=== PATIENT | male | born 1965 | race African-American/Black ===

== ENCOUNTER 2018-10-03 12:45 | Inpatient (IN) ==
[2018-10-03] MEDS ORDERED: ONDANSETRON 4 MG/2 ML VIAL IV STA (13:15)
[2018-10-03] MEDS ORDERED: levETIRAcetam 500 MG/5 ML VIAL IV ONE (13:34)
[2018-10-03 13:42] LABS: Apearance,Urine CLEAR (Clear); Bilirubin,Urine Negative (Negative); Blood, Urine Moderate mg/dL (Negative); Glucose,Urine (UA) >=500 mg/dL (Negative); Ketones,Urine Negative (Negative); Nitrite,Urine Negative (Negative); Protein,Urine 30 MG/DL; RBC,Urine 1 /HPF (0-4); Squamous Epithelial Cell,Urine Occasional /HPF (0-10); Urine Color Colorless (Yellow); Urine Specific Gravity 1.007 (1.001-1.035); Urine Urobilinogen < 2.0 EU/DL (0.2-1.0); WBC,Urine <1 /HPF (0-6)
[2018-10-03 13:51] LABS: Barbiturates Screen,Urine Negative (Negative); Benzodiazepines Screen,Urine Negative (Negative); Cannabinoid Screen,Urine Negative (Negative); Opiate Screen,Urine Negative (Negative); Phencyclidine Screen,Urine Negative (Negative)
[2018-10-03 13:54] LABS: Basophils % 0.3 % (0.0-0.8); Eosinophils % 0.1 % (0.00-10.9); Hematocrit 49.7 VOL% (42.0-52.0); Immature Granulocytes % 0.8 %; Immature Granulocytes Absolute 0.06 #; Lymphocytes # 1.1 10*3/uL (1.4-4.0); Lymphocytes % 14.2 % (21.2-54.2); Mean Corpuscular HGB Conc 32.2 GM/DL (32-36); Mean Corpuscular Hemoglobin 31 PG (27-34); Mean Corpuscular Volume 96.7 FL (87-102); Mean Platelet Volume 10.6 FL (9.6-12.0); Monocytes # 0.6 10*3/uL (0.11-0.8); Monocytes % 7.1 % (1.7-12.7); Neutrophils # 6.1 10*3/uL (1.4-7.4); Neutrophils % 77.5 % (38.7-73.9); Platelet Count 152 T/CUMM (130-400); Red Blood Count 5.14 MC/CUMM (3.8-5.5); Red Cell Distribution Width 14.5 % (9.3-17.3); White Blood Count 7.8 T/CUMM (4-12)
[2018-10-03 14:15] LABS: Alanine Aminotransferase 18 U/L (16-61); Albumin 3.8 G/DL (3.4-5.0); Alkaline Phosphatase 115 U/L (45-117); Aspartate Amino Transferase 31 U/L (0-37); Blood Urea Nitrogen 6 MG/DL (7-18); Calcium 8.6 MG/DL (8.5-10.1); Glucose 197 MG/DL (74-106); Osmolality,Calculated 275.8 MOS/KG (273-304); Potassium 3.1 MMOL/L (3.5-5.1); Sodium 137 MMOL/L (136-145); Total Protein 7.7 G/DL (6.4-8.3); Troponin I < 0.015 NG/ML (0.00-0.045)
[2018-10-03] MEDS ORDERED: POTASSIUM CHLORIDE 20 MEQ TABLET PO STA (14:38)
[2018-10-03] MEDS: ACETAMINOPHEN 325 MG TABLET PO PRN ×2 (15:10→20:23)
[2018-10-03] MEDS ORDERED: METOPROLOL TARTRATE 5 MG/5 ML VIAL IV STA (15:58)
[2018-10-03] MEDS ORDERED: LORazepam 2 MG/1 ML VIAL IV PRN (16:39)
[2018-10-03] MEDS ORDERED: hydrALAZINE 20 MG/1 ML VIAL IV PRN (17:04)
[2018-10-03] MEDS ORDERED: cloNIDine 0.2 MG/24 HR PATCH TRANSDERM SCH (17:30)
[2018-10-03] MEDS: POTASSIUM CHLORIDE 20 MEQ TABLET PO PRN ×2 (18:20→20:23)
[2018-10-03] MEDS ORDERED: LABETALOL 20 MG/4 ML SYRINGE IV PRN (19:55)
[2018-10-04 01:57] LABS: Basophils % 0.3 % (0.0-0.8); Eosinophils % 0.1 % (0.00-10.9); Hematocrit 48.2 VOL% (42.0-52.0); Immature Granulocytes % 0.3 %; Immature Granulocytes Absolute 0.02 #; Lymphocytes # 1.3 10*3/uL (1.4-4.0); Mean Corpuscular HGB Conc 33.2 GM/DL (32-36); Mean Corpuscular Hemoglobin 31 PG (27-34); Mean Corpuscular Volume 93.1 FL (87-102); Mean Platelet Volume 10.5 FL (9.6-12.0); Monocytes # 0.6 10*3/uL (0.11-0.8); Monocytes % 8.7 % (1.7-12.7); Neutrophils # 5.1 10*3/uL (1.4-7.4); Neutrophils % 72.6 % (38.7-73.9); Platelet Count 156 T/CUMM (130-400); Red Blood Count 5.18 MC/CUMM (3.8-5.5); Red Cell Distribution Width 14.7 % (9.3-17.3)
[2018-10-04 02:27] LABS: Calcium 8.8 MG/DL (8.5-10.1); Osmolality,Calculated 274.5 MOS/KG (273-304); Risk Ratio 1.87; Thyroid Stimulating Hormone 0.129 uIU/ml (0.358-3.74)
[2018-10-04] MEDS: LISINOPRIL 20 MG TABLET PO SCH (08:30)
[2018-10-04] MEDS: PANTOPRAZOLE 40 MG TABLET PO SCH (08:30)
[2018-10-04] MEDS: METOPROLOL SUCCINATE XL 100 MG TABLET PO SCH (08:37)
[2018-10-04] MEDS: levETIRAcetam 500 MG TABLET PO SCH (20:23)
[2018-10-05 05:36] LABS: Basophils % 0.6 % (0.0-0.8); Eosinophils # 0.1 10*3/uL (0.0-0.87); Eosinophils % 2.1 % (0.00-10.9); Hematocrit 46.7 VOL% (42.0-52.0); Hemoglobin 15.1 GM/DL (14.0-18.0); Immature Granulocytes % 0.2 %; Immature Granulocytes Absolute 0.01 #; Lymphocytes # 1.9 10*3/uL (1.4-4.0); Lymphocytes % 39.7 % (21.2-54.2); Mean Corpuscular HGB Conc 32.3 GM/DL (32-36); Mean Corpuscular Hemoglobin 31 PG (27-34); Mean Corpuscular Volume 96.3 FL (87-102); Mean Platelet Volume 10.9 FL (9.6-12.0); Monocytes # 0.5 10*3/uL (0.11-0.8); Monocytes % 10.7 % (1.7-12.7); Neutrophils # 2.3 10*3/uL (1.4-7.4); Neutrophils % 46.7 % (38.7-73.9); Platelet Count 154 T/CUMM (130-400); Red Blood Count 4.85 MC/CUMM (3.8-5.5); Red Cell Distribution Width 14.8 % (9.3-17.3); White Blood Count 4.9 T/CUMM (4-12)
[2018-10-05 06:06] LABS: Calcium 8.9 MG/DL (8.5-10.1); Osmolality,Calculated 274.5 MOS/KG (273-304)
[2018-10-05] MEDS: levETIRAcetam 500 MG TABLET PO SCH (08:37)
[2018-10-05] MEDS: PANTOPRAZOLE 40 MG TABLET PO SCH (08:38)
[2018-10-05] MEDS: LISINOPRIL 20 MG TABLET PO SCH (08:38)
[2018-10-05] MEDS: METOPROLOL SUCCINATE XL 100 MG TABLET PO SCH (08:38)
[2018-10-05 12:33] VITALS: BP 128/83
== END 2018-10-05 13:18 | disposition home or self-care (01) | DRG 101 ==
LOC: EDUNIT# → EDBD → N.ED 12:45 → N.EDINP 15:00 → N.5E 16:37
PROVIDERS: ADMIT Hospitalist; ATTEND Hospitalist

== ENCOUNTER 2018-12-06 12:30 | Observation (INO) ==
[2018-12-06] MEDS ORDERED: levETIRAcetam 500 MG/5 ML VIAL IV ONE (13:24)
[2018-12-06 13:32] LABS: Basophils % 0.4 % (0.0-0.8); Eosinophils # 0.1 10*3/uL (0.0-0.87); Eosinophils % 1.5 % (0.00-10.9); Hematocrit 40.3 VOL% (42.0-52.0); Hemoglobin 13.3 GM/DL (14.0-18.0); Immature Granulocytes % 0.2 %; Immature Granulocytes Absolute 0.01 #; Lymphocytes # 1.1 10*3/uL (1.4-4.0); Lymphocytes % 23.2 % (21.2-54.2); Mean Corpuscular Volume 94.6 FL (87-102); Mean Platelet Volume 10.8 FL (9.6-12.0); Monocytes % 13.1 % (1.7-12.7); Neutrophils % 61.6 % (38.7-73.9); Platelet Count 148 T/CUMM (130-400); Red Blood Count 4.26 MC/CUMM (3.8-5.5); Red Cell Distribution Width 15.3 % (9.3-17.3); White Blood Count 4.6 T/CUMM (4-12)
[2018-12-06] MEDS ORDERED: ACETAMINOPHEN 500 MG TABLET PO STA (13:37)
[2018-12-06] MEDS ORDERED: ACETAMINOPHEN 500 MG TABLET ONE (13:38)
[2018-12-06 13:59] LABS: Calcium 8.6 MG/DL (8.5-10.1)
[2018-12-06] MEDS ORDERED: amLODIPine 10 MG TABLET ONE (14:01)
[2018-12-06] MEDS ORDERED: amLODIPine 5 MG TABLET PO STA (14:05)
[2018-12-06] MEDS ORDERED: LORazepam 2 MG/1 ML VIAL ONE (14:53)
[2018-12-06] MEDS ORDERED: LORazepam 2 MG/1 ML VIAL IV STA (15:11)
[2018-12-06 15:25] LABS: Apearance,Urine CLEAR (Clear); Bilirubin,Urine Negative (Negative); Blood, Urine Small mg/dL (Negative); Glucose,Urine (UA) Negative (Negative); Ketones,Urine Negative (Negative); Mucus,Urine Moderate /LPF (Occasional); Nitrite,Urine Negative (Negative); Protein,Urine 100 MG/DL; RBC,Urine 5 /HPF (0-4); Squamous Epithelial Cell,Urine Occasional /HPF (0-10); Urine Color Yellow (Yellow); Urine Specific Gravity 1.017 (1.001-1.035); Urine Urobilinogen < 2.0 EU/DL (0.2-1.0); WBC,Urine 1 /HPF (0-6)
[2018-12-06 15:36] LABS: Barbiturates Screen,Urine Negative (Negative); Benzodiazepines Screen,Urine Negative (Negative); Cannabinoid Screen,Urine Negative (Negative); Opiate Screen,Urine Negative (Negative); Phencyclidine Screen,Urine Negative (Negative)
[2018-12-06] MEDS ORDERED: THIAMINE INJ 100 MG, FOLIC ACID INJ 1 MG, MAGNESIUM SULF INJ 2 GM, MULTIVITAMIN INJ 10 ... IV ONE (15:39)
[2018-12-06] MEDS ORDERED: ONDANSETRON 4 MG/2 ML VIAL IV PRN ×2 (16:07→16:10)
[2018-12-06] MEDS ORDERED: LORazepam 2 MG/1 ML VIAL IV PRN (16:09)
[2018-12-06] MEDS ORDERED: DOCUSATE SODIUM 100 MG CAPSULE PO PRN (16:10)
[2018-12-06] MEDS ORDERED: ACETAMINOPHEN 325 MG TABLET PO PRN (16:10)
[2018-12-06] MEDS ORDERED: hydrALAZINE 20 MG/1 ML VIAL IV PRN (16:12)
[2018-12-06] MEDS ORDERED: ENOXAPARIN 40 MG/0.4 ML SYRINGE SUBCUT SCH (16:30)
[2018-12-06] MEDS ORDERED: METOPROLOL TARTRATE 50 MG TABLET ONE (17:18)
[2018-12-06] MEDS ORDERED: LISINOPRIL 10 MG TABLET ONE (17:20)
[2018-12-06] MEDS: LISINOPRIL 10 MG TABLET PO SCH (17:46)
[2018-12-06 17:56] LABS: PT Patient Result 10.6 SECS; Partial Thromboplastin Time 24.7 SECS (0-40)
[2018-12-06] MEDS ORDERED: NICOTINE 21 MG/24 HR PATCH TRANSDERM PRN (18:30)
[2018-12-06 18:34] LABS: Risk Ratio 1.95; Thyroid Stimulating Hormone 0.11 uIU/ml (0.358-3.74); VLDL CHOLESTEROL 10.8 MG/DL
[2018-12-06] MEDS: METOPROLOL SUCCINATE XL 100 MG TABLET PO SCH ×2 (18:58→21:07)
[2018-12-06] MEDS: levETIRAcetam 500 MG TABLET PO SCH (21:03)
[2018-12-07 04:38] LABS: Basophils % 0.2 % (0.0-0.8); Eosinophils % 0.4 % (0.00-10.9); Hematocrit 40.8 VOL% (42.0-52.0); Hemoglobin 13.6 GM/DL (14.0-18.0); Immature Granulocytes % 0.4 %; Immature Granulocytes Absolute 0.02 #; Lymphocytes # 1.3 10*3/uL (1.4-4.0); Lymphocytes % 22.4 % (21.2-54.2); Mean Corpuscular HGB Conc 33.3 GM/DL (32-36); Mean Corpuscular Volume 93.6 FL (87-102); Mean Platelet Volume 11.1 FL (9.6-12.0); Monocytes % 13.1 % (1.7-12.7); Neutrophils % 63.5 % (38.7-73.9); Platelet Count 154 T/CUMM (130-400); Red Blood Count 4.36 MC/CUMM (3.8-5.5); Red Cell Distribution Width 14.9 % (9.3-17.3); White Blood Count 5.7 T/CUMM (4-12)
[2018-12-07 05:26] LABS: Bilirubin,Total 1.1 MG/DL (0.2-1.0); Calcium 8.8 MG/DL (8.5-10.1); Osmolality,Calculated 275.4 MOS/KG (273-304); Total Protein 5.9 G/DL (6.4-8.3)
[2018-12-07 08:25] VITALS: BP 150/86
[2018-12-07] MEDS: levETIRAcetam 500 MG TABLET PO SCH (08:31)
[2018-12-07] MEDS: METOPROLOL SUCCINATE XL 100 MG TABLET PO SCH (08:31)
[2018-12-07] MEDS: LISINOPRIL 10 MG TABLET PO SCH (08:31)
[2018-12-07] MEDS ORDERED: THIAMINE 200 MG/2 ML VIAL IV SCH (09:00)
[2018-12-07] MEDS ORDERED: PANTOPRAZOLE 40 MG TABLET PO SCH (09:00)
== END 2018-12-07 09:02 | disposition home or self-care (01) ==
LOC: EDUNIT# → EDBD → N.EDINP 12:30 → N.ED 12:30 → N.EDINP 18:20 → N.4E 18:22
PROVIDERS: ADMIT Hospitalist; ATTEND Hospitalist

== ENCOUNTER 2019-01-04 23:15 | Observation (INO) ==
[2019-01-04] MEDS ORDERED: hydrALAZINE 20 MG/1 ML VIAL IV STA (23:52)
[2019-01-05] MEDS ORDERED: levETIRAcetam 500 MG/5 ML VIAL IV ONE (00:38)
[2019-01-05 00:48] LABS: Basophils # 0.1 10*3/uL (0.0-0.2); Basophils % 1.2 % (0.0-0.8); Eosinophils # 0.1 10*3/uL (0.0-0.87); Eosinophils % 2.7 % (0.00-10.9); Hematocrit 38.4 VOL% (42.0-52.0); Hemoglobin 13.1 GM/DL (14.0-18.0); Immature Granulocytes % 0.2 %; Immature Granulocytes Absolute 0.01 #; Lymphocytes # 1.8 10*3/uL (1.4-4.0); Lymphocytes % 44.5 % (21.2-54.2); Mean Corpuscular HGB Conc 34.1 GM/DL (32-36); Mean Corpuscular Volume 93.7 FL (87-102); Mean Platelet Volume 11.7 FL (9.6-12.0); Monocytes % 11.5 % (1.7-12.7); Neutrophils % 39.9 % (38.7-73.9); Platelet Count 139 T/CUMM (130-400); Red Cell Distribution Width 15.1 % (9.3-17.3); White Blood Count 4.1 T/CUMM (4-12)
[2019-01-05 00:54] LABS: Albumin 3.4 G/DL (3.4-5.0); Bilirubin,Total 0.4 MG/DL (0.2-1.0); Calcium 8.4 MG/DL (8.5-10.1); Osmolality,Calculated 288.6 MOS/KG (273-304); Total Protein 6.2 G/DL (6.4-8.3); Troponin I 0.015 NG/ML (0.00-0.045)
[2019-01-05] MEDS ORDERED: NICOTINE 21 MG/24 HR PATCH TRANSDERM PRN (01:31)
[2019-01-05] MEDS ORDERED: ALBUTEROL 2.5 MG/3 ML NEB RESP TX PRN (01:31)
[2019-01-05] MEDS ORDERED: hydrALAZINE 20 MG/1 ML VIAL IV PRN (01:31)
[2019-01-05] MEDS ORDERED: ACETAMINOPHEN 325 MG TABLET PO PRN (01:31)
[2019-01-05] MEDS ORDERED: ONDANSETRON 4 MG/2 ML VIAL IV PRN (01:31)
[2019-01-05] MEDS ORDERED: DOCUSATE SODIUM 100 MG CAPSULE PO PRN (01:31)
[2019-01-05] MEDS ORDERED: niCARdipine 25 MG/10 ML VIAL IV ONE (01:36)
[2019-01-05] MEDS: niCARdipine INJ 25 MG in SODIUM CHLORIDE 0.9% 240 ML IV PRN ×2 (01:55→07:15)
[2019-01-05] MEDS ORDERED: LOSARTAN 50 MG TABLET PO SCH (02:00)
[2019-01-05] MEDS: levETIRAcetam 500 MG TABLET PO SCH ×3 (03:36→20:42)
[2019-01-05 04:41] LABS: Apearance,Urine CLEAR (Clear); Bilirubin,Urine Negative (Negative); Blood, Urine Negative (Negative); Glucose,Urine (UA) Negative (Negative); Ketones,Urine Negative (Negative); Nitrite,Urine Negative (Negative); Protein,Urine Negative; RBC,Urine <1 /HPF (0-4); Urine Color Colorless (Yellow); Urine Specific Gravity 1.004 (1.001-1.035); Urine Urobilinogen < 2.0 EU/DL (0.2-1.0); WBC,Urine <1 /HPF (0-6)
[2019-01-05 05:03] LABS: Basophils % 0.6 % (0.0-0.8); Eosinophils # 0.1 10*3/uL (0.0-0.87); Eosinophils % 1.9 % (0.00-10.9); Hematocrit 43.5 VOL% (42.0-52.0); Hemoglobin 14.5 GM/DL (14.0-18.0); Immature Granulocytes % 0.2 %; Immature Granulocytes Absolute 0.01 #; Lymphocytes # 1.4 10*3/uL (1.4-4.0); Lymphocytes % 28.7 % (21.2-54.2); Mean Corpuscular HGB Conc 33.3 GM/DL (32-36); Mean Platelet Volume 11.1 FL (9.6-12.0); Monocytes % 10.3 % (1.7-12.7); Neutrophils % 58.3 % (38.7-73.9); Platelet Count 146 T/CUMM (130-400); Red Blood Count 4.63 MC/CUMM (3.8-5.5); Red Cell Distribution Width 14.8 % (9.3-17.3); White Blood Count 4.7 T/CUMM (4-12)
[2019-01-05 05:53] LABS: Albumin 3.7 G/DL (3.4-5.0); Bilirubin,Total 0.8 MG/DL (0.2-1.0); Osmolality,Calculated 288.7 MOS/KG (273-304); Thyroid Stimulating Hormone 0.413 uIU/ml (0.358-3.74); Total Protein 6.7 G/DL (6.4-8.3)
[2019-01-05] MEDS: ALBUTEROL/IPRATROPIUM 3 ML NEB RESP TX SCH ×3 (07:38→19:40)
[2019-01-05] MEDS: ENOXAPARIN 40 MG/0.4 ML SYRINGE SUBCUT SCH (08:11)
[2019-01-05] MEDS: FOLIC ACID 1 MG TABLET PO SCH (08:11)
[2019-01-05] MEDS: LISINOPRIL 20 MG TABLET PO SCH (08:11)
[2019-01-05] MEDS: MULTIVITAMIN (CENTRUM) TABLET PO SCH (08:11)
[2019-01-05] MEDS: METOPROLOL SUCCINATE XL 100 MG TABLET PO SCH (08:11)
[2019-01-05] MEDS: PANTOPRAZOLE 40 MG TABLET PO SCH (08:11)
[2019-01-05] MEDS: THIAMINE 100 MG TABLET PO SCH (08:11)
[2019-01-05] MEDS ORDERED: METOPROLOL TARTRATE 50 MG TABLET PO SCH (09:00)
[2019-01-05] MEDS ORDERED: NIFEdipine 10 MG CAPSULE PO PRN (11:01)
[2019-01-06] MEDS: ALBUTEROL/IPRATROPIUM 3 ML NEB RESP TX SCH ×2 (00:26→07:29)
[2019-01-06 05:43] LABS: Calcium 8.9 MG/DL (8.5-10.1); Osmolality,Calculated 283.1 MOS/KG (273-304)
[2019-01-06 07:11] VITALS: BP 142/87
[2019-01-06] MEDS: FOLIC ACID 1 MG TABLET PO SCH (08:49)
[2019-01-06] MEDS: LISINOPRIL 20 MG TABLET PO SCH (08:49)
[2019-01-06] MEDS: PANTOPRAZOLE 40 MG TABLET PO SCH (08:50)
[2019-01-06] MEDS: levETIRAcetam 500 MG TABLET PO SCH (08:50)
[2019-01-06] MEDS: THIAMINE 100 MG TABLET PO SCH (08:50)
[2019-01-06] MEDS: MULTIVITAMIN (CENTRUM) TABLET PO SCH (08:50)
[2019-01-06] MEDS: ENOXAPARIN 40 MG/0.4 ML SYRINGE SUBCUT SCH (08:50)
[2019-01-06] MEDS: METOPROLOL SUCCINATE XL 100 MG TABLET PO SCH (08:50)
== END 2019-01-06 11:25 | disposition home or self-care (01) ==
LOC: N.ED 23:15 → N.EDINP 01-05 01:31 → INTOOBSV 01-05 01:31 → N.ICU 01-05 02:20 → SUATTDRO 01-05 04:47 → N.5E 01-05 13:14
PROVIDERS: ADMIT Internal Medicine; ATTEND Hospitalist

== ENCOUNTER 2019-08-17 11:19 | Observation (INO) ==
[2019-08-17 12:46] LABS: Basophils % 0.6 % (0.0-0.8); Eosinophils % 1.1 % (0.00-10.9); Hematocrit 43.2 VOL% (42.0-52.0); Hemoglobin 14.6 GM/DL (14.0-18.0); Lymphocytes # 1.3 10*3/uL (1.4-4.0); Lymphocytes % 35.9 % (21.2-54.2); Mean Corpuscular HGB Conc 33.8 GM/DL (32-36); Mean Corpuscular Volume 93.7 FL (87-102); Mean Platelet Volume 11.5 FL (9.6-12.0); Monocytes % 10.9 % (1.7-12.7); Neutrophils % 51.5 % (38.7-73.9); Platelet Count 166 T/CUMM (130-400); Red Blood Count 4.61 MC/CUMM (3.8-5.5); Red Cell Distribution Width 13.8 % (9.3-17.3); White Blood Count 3.6 T/CUMM (4-12)
[2019-08-17 13:05] LABS: Blood Urea Nitrogen 5 MG/DL (7-18); Calcium 8.4 MG/DL (8.5-10.1); Estimated Glom Filtration Rate 90 ML/MIN; Glucose 98 MG/DL (74-106); Osmolality,Calculated 275.4 MOS/KG (273-304)
[2019-08-17] MEDS ORDERED: hydrALAZINE 20 MG/1 ML VIAL IV STA (13:13)
[2019-08-17 14:00] LABS: Apearance,Urine CLEAR (Clear); Barbiturates Screen,Urine Negative (Negative); Benzodiazepines Screen,Urine Negative (Negative); Bilirubin,Urine Negative (Negative); Blood, Urine Negative (Negative); Cannabinoid Screen,Urine Negative (Negative); Glucose,Urine (UA) Negative (Negative); Hyaline Casts,Urine 3 /LPF (0-3); Ketones,Urine Negative (Negative); Mucus,Urine Few /LPF (Occasional); Nitrite,Urine Negative (Negative); Opiate Screen,Urine Negative (Negative); Phencyclidine Screen,Urine Negative (Negative); Protein,Urine 30 MG/DL; RBC,Urine 5 /HPF (0-4); Squamous Epithelial Cell,Urine Occasional /HPF (0-10); Urine Color Yellow (Yellow); Urine Specific Gravity 1.015 (1.001-1.035); Urine Urobilinogen < 2.0 EU/DL (0.2-1.0); WBC,Urine 5 /HPF (0-6)
[2019-08-17] MEDS ORDERED: ONDANSETRON 4 MG/2 ML VIAL IV PRN (16:27)
[2019-08-17] MEDS ORDERED: ACETAMINOPHEN 325 MG TABLET PO PRN (16:27)
[2019-08-17] MEDS ORDERED: hydrALAZINE 20 MG/1 ML VIAL IV PRN (16:59)
[2019-08-17] MEDS: levETIRAcetam 500 MG TABLET PO SCH (20:55)
[2019-08-17] MEDS ORDERED: ATORVASTATIN 80 MG TABLET PO SCH (21:00)
[2019-08-17] MEDS ORDERED: ENOXAPARIN 30 MG/0.3 ML SYRINGE SUBCUT SCH (21:00)
[2019-08-18 05:25] LABS: Basophils % 0.3 % (0.0-0.8); Hematocrit 41.9 VOL% (42.0-52.0); Hemoglobin 14.2 GM/DL (14.0-18.0); Immature Granulocytes % 0.2 %; Immature Granulocytes Absolute 0.01 #; Lymphocytes # 1.2 10*3/uL (1.4-4.0); Lymphocytes % 19.5 % (21.2-54.2); Mean Corpuscular HGB Conc 33.9 GM/DL (32-36); Mean Corpuscular Volume 92.3 FL (87-102); Mean Platelet Volume 12.5 FL (9.6-12.0); Monocytes % 8.2 % (1.7-12.7); Neutrophils % 71.8 % (38.7-73.9); Platelet Count 176 T/CUMM (130-400); Red Blood Count 4.54 MC/CUMM (3.8-5.5); Red Cell Distribution Width 13.5 % (9.3-17.3); White Blood Count 5.9 T/CUMM (4-12)
[2019-08-18 05:36] LABS: Calcium 8.8 MG/DL (8.5-10.1); Osmolality,Calculated 276.4 MOS/KG (273-304)
[2019-08-18] MEDS ORDERED: FOLIC ACID 1 MG TABLET PO SCH (09:00)
[2019-08-18] MEDS ORDERED: THIAMINE 100 MG TABLET PO SCH (09:00)
[2019-08-18] MEDS ORDERED: MULTIVITAMIN (CENTRUM) TABLET PO SCH (09:00)
[2019-08-18] MEDS ORDERED: METOPROLOL SUCCINATE XL 100 MG TABLET PO SCH (09:00)
[2019-08-18] MEDS ORDERED: PANTOPRAZOLE 40 MG TABLET PO SCH (09:00)
[2019-08-18] MEDS: levETIRAcetam 500 MG TABLET PO SCH (09:12)
[2019-08-18] MEDS: POTASSIUM CHLORIDE 20 MEQ TABLET PO PRN ×2 (09:12→13:18)
[2019-08-18] MEDS ORDERED: amLODIPine 5 MG TABLET PO ONE (13:06)
[2019-08-18 13:21] VITALS: BP 171/86
== END 2019-08-18 14:14 | disposition home health service (06) ==
LOC: N.ED 11:19 → N.EDINP 11:19 → N.5E 17:12 → N.2W 17:32
PROVIDERS: ADMIT Internal Medicine; ATTEND Internal Medicine

== ENCOUNTER 2020-03-02 22:49 | Observation (INO) ==
[2020-03-02] MEDS ORDERED: LORazepam 2 MG/1 ML VIAL ONE ×2 (23:00→23:18)
[2020-03-02] MEDS ORDERED: THIAMINE 200 MG/2 ML VIAL IV STA (23:05)
[2020-03-02 23:30] LABS: Basophils % 0.1 % (0.0-0.8); Hematocrit 38.3 VOL% (42.0-52.0); Hemoglobin 12.7 GM/DL (14.0-18.0); Immature Granulocytes % 0.4 %; Immature Granulocytes Absolute 0.03 #; Lymphocytes # 1.2 10*3/uL (1.4-4.0); Lymphocytes % 13.8 % (21.2-54.2); Mean Corpuscular HGB Conc 33.2 GM/DL (32-36); Mean Corpuscular Volume 94.3 FL (87-102); Monocytes % 9.1 % (1.7-12.7); Neutrophils % 76.6 % (38.7-73.9); Platelet Count 136 T/CUMM (130-400); Red Blood Count 4.06 MC/CUMM (3.8-5.5); Red Cell Distribution Width 15.2 % (9.3-17.3); White Blood Count 8.5 T/CUMM (4-12)
[2020-03-02 23:39] LABS: PT Patient Result 10.8 SECS (9.8-11.9)
[2020-03-02] MEDS ORDERED: hydrALAZINE 20 MG/1 ML VIAL IV STA (23:41)
[2020-03-02] MEDS ORDERED: levETIRAcetam 500 MG/5 ML VIAL IV ONE ×2 (23:43→23:45)
[2020-03-02] MEDS ORDERED: SODIUM CHLORIDE 0.9% 100 ML IV ONE (23:43)
[2020-03-02] MEDS ORDERED: THIAMINE INJ 100 MG, FOLIC ACID INJ 1 MG, MAGNESIUM SULF INJ 2 GM, MULTIVITAMIN INJ 10 ... IV ONE (23:43)
[2020-03-02] MEDS ORDERED: LORazepam 2 MG/1 ML VIAL IV STA ×2 (23:54→23:55)
[2020-03-02 23:56] LABS: Alanine Aminotransferase 77 U/L (16-61); Albumin 3.8 G/DL (3.4-5.0); Alkaline Phosphatase 93 U/L (45-117); Aspartate Amino Transferase 122 U/L (0-37); Blood Urea Nitrogen 14 MG/DL (7-18); Calcium 8.9 MG/DL (8.5-10.1); Estimated Glom Filtration Rate 89 ML/MIN; Glucose 144 MG/DL (74-106); Osmolality,Calculated 280.5 MOS/KG (273-304); Total Protein 7.3 G/DL (6.4-8.3)
[2020-03-03 00:24] LABS: Barbiturates Screen,Urine Negative (Negative); Benzodiazepines Screen,Urine Positive (Negative); Cannabinoid Screen,Urine Negative (Negative); Opiate Screen,Urine Negative (Negative); Phencyclidine Screen,Urine Negative (Negative)
[2020-03-03 00:26] LABS: Apearance,Urine CLEAR (Clear); Bacteria,Urine Occasional /HPF (Few); Bilirubin,Urine Negative (Negative); Blood, Urine Large mg/dL (Negative); Glucose,Urine (UA) 50 mg/dL (Negative); Hyaline Casts,Urine 3 /LPF (0-3); Ketones,Urine 20 mg/dL (Negative); Mucus,Urine Moderate /LPF (Occasional); Nitrite,Urine Negative (Negative); Protein,Urine 100 MG/DL; RBC,Urine 223 /HPF (0-4); Squamous Epithelial Cell,Urine Occasional /HPF (0-10); Urine Color Yellow (Yellow); Urine Specific Gravity 1.023 (1.001-1.035); WBC,Urine 1 /HPF (0-6)
[2020-03-03 01:20] LABS: Hypochromasia 1+; Platelet Estimate Normal
[2020-03-03] MEDS ORDERED: ACETAMINOPHEN 325 MG TABLET PO PRN (02:48)
[2020-03-03] MEDS ORDERED: DOCUSATE SODIUM 100 MG CAPSULE PO PRN (02:48)
[2020-03-03] MEDS ORDERED: ONDANSETRON 4 MG/2 ML VIAL IV PRN (02:48)
[2020-03-03] MEDS ORDERED: LORazepam 2 MG/1 ML VIAL IV PRN ×2 (02:55→02:56)
[2020-03-03] MEDS ORDERED: MAGNESIUM SULF RIDER 4 GM in PREMIX 1 EACH IV PRN (02:56)
[2020-03-03] MEDS ORDERED: MAGNESIUM SULF RIDER 2 GM in PREMIX 1 EACH IV PRN (02:56)
[2020-03-03] MEDS ORDERED: MAGNESIUM SULF RIDER 50 ML IV ONE (03:35)
[2020-03-03] MEDS: POTASSIUM CHLORIDE RIDER 10 MEQ in PREMIX 1 EACH IV PRN ×2 (05:27→06:28)
[2020-03-03 05:59] LABS: Basophils % 0.1 % (0.0-0.8); Hemoglobin 12.4 GM/DL (14.0-18.0); Immature Granulocytes % 0.3 %; Immature Granulocytes Absolute 0.02 #; Lymphocytes # 1.1 10*3/uL (1.4-4.0); Lymphocytes % 14.1 % (21.2-54.2); Mean Corpuscular HGB Conc 33.5 GM/DL (32-36); Mean Corpuscular Volume 94.4 FL (87-102); Mean Platelet Volume 11.5 FL (9.6-12.0); Monocytes % 11.8 % (1.7-12.7); Neutrophils % 73.7 % (38.7-73.9); Platelet Count 129 T/CUMM (130-400); Red Blood Count 3.92 MC/CUMM (3.8-5.5); Red Cell Distribution Width 15.1 % (9.3-17.3); White Blood Count 7.8 T/CUMM (4-12)
[2020-03-03 06:07] LABS: Osmolality,Calculated 272.7 MOS/KG (273-304)
[2020-03-03 06:31] LABS: Anisocytosis 1+; Macrocytosis 1+; Platelet Estimate Adequate
[2020-03-03] MEDS ORDERED: ENOXAPARIN 40 MG/0.4 ML SYRINGE SUBCUT SCH (09:00)
[2020-03-03] MEDS: hydrALAZINE 20 MG/1 ML VIAL IV PRN ×2 (19:53→21:29)
[2020-03-03] MEDS ORDERED: levETIRAcetam 500 MG TABLET PO SCH (21:00)
[2020-03-03] MEDS ORDERED: niCARdipine INJ 25 MG in SODIUM CHLORIDE 0.9% 240 ML IV PRN (23:18)
[2020-03-03] MEDS ORDERED: DEXAMETHASONE 4 MG/1 ML VIAL IV SCH (23:30)
[2020-03-04 01:09] VITALS: BP 175/97
== END 2020-03-04 01:00 | disposition hospice, home (50) ==
LOC: EDBD → EDUNIT# → N.EDINP 22:49 → N.ED 22:49 → N.TELES 03-03 03:26 → N.ICU 03-03 23:08
PROVIDERS: ADMIT Family Medicine; ATTEND Family Medicine

== ENCOUNTER 2020-06-30 18:21 | Inpatient (IN) ==
[2020-06-30] MEDS ORDERED: LORazepam 2 MG/1 ML VIAL ONE (18:29)
[2020-06-30] MEDS ORDERED: SODIUM CHLORIDE 0.9% 500 ML IV STA (18:33)
[2020-06-30] MEDS ORDERED: LORazepam 2 MG/1 ML VIAL IV STA (18:33)
[2020-06-30 18:44] LABS: Basophils % 0.6 % (0.0-0.8); Eosinophils # 0.1 10*3/uL (0.0-0.87); Eosinophils % 1.4 % (0.00-10.9); Hematocrit 37.4 VOL% (42.0-52.0); Hemoglobin 11.8 GM/DL (14.0-18.0); Immature Granulocytes % 0.5 %; Immature Granulocytes Absolute 0.03 #; Lymphocytes # 4.1 10*3/uL (1.4-4.0); Lymphocytes % 63.9 % (21.2-54.2); Mean Corpuscular HGB Conc 31.6 GM/DL (32-36); Mean Platelet Volume 10.4 FL (9.6-12.0); Monocytes % 11.6 % (1.7-12.7); Platelet Count 275 T/CUMM (130-400); Red Blood Count 4.25 MC/CUMM (3.8-5.5); Red Cell Distribution Width 14.5 % (9.3-17.3); White Blood Count 6.5 T/CUMM (4-12)
[2020-06-30 19:08] LABS: Alanine Aminotransferase 23 U/L (16-61); Alkaline Phosphatase 110 U/L (45-117); Aspartate Amino Transferase 20 U/L (0-37); Bilirubin,Total < 0.39 MG/DL (0.2-1.0); Blood Urea Nitrogen 14 MG/DL (7-18); Calcium 9.2 MG/DL (8.5-10.1); Estimated Glom Filtration Rate 71 ML/MIN; Glucose 148 MG/DL (74-106); Total Protein 7.4 G/DL (6.4-8.3)
[2020-06-30 19:39] LABS: Bacteria,Urine Occasional /HPF (Few); Bilirubin,Urine Negative (Negative); Blood, Urine Negative (Negative); Glucose,Urine (UA) Negative (Negative); Hyaline Casts,Urine 46 /LPF (0-3); Ketones,Urine Negative (Negative); Mucus,Urine Occasional /LPF (Occasional); Nitrite,Urine Negative (Negative); Protein,Urine 30 MG/DL; RBC,Urine <1 /HPF (0-4); Squamous Epithelial Cell,Urine Occasional /HPF (0-10); Urine Appearance CLEAR (Clear); Urine Color Yellow (Yellow); Urine Specific Gravity 1.018 (1.001-1.035); Urine Urobilinogen < 2.0 EU/DL (0.2-1.0); WBC,Urine 2 /HPF (0-6)
[2020-06-30 19:50] LABS: Anisocytosis 2+; Burr Cells 1+; Eosinophils 3 % (0-10); Lymphocytes 63 % (20-55); Schistocytes 1+; Segmented Neutrophils 22 % (50-85); Total Cells Counted 100
[2020-06-30 19:51] LABS: Atypical Lymphocytes 1+; Platelet Estimate Increased; Reactive Lymphocytes 2+
[2020-06-30 20:08] LABS: Barbiturates Screen,Urine Negative (Negative); Benzodiazepines Screen,Urine Negative (Negative); Cannabinoid Screen,Urine Negative (Negative); Opiate Screen,Urine Positive (Negative); Phencyclidine Screen,Urine Negative (Negative)
[2020-06-30] MEDS ORDERED: FOSPHENYTOIN IV STA (21:19)
[2020-06-30] MEDS ORDERED: [UNRECOGNIZED DRUG - OTHER] IV STA (21:19)
[2020-06-30] MEDS ORDERED: SODIUM CHLORIDE IV STA (21:19)
[2020-06-30] MEDS ORDERED: FOSPHENYTOIN 100 MG.PE/2 ML VIAL ONE (21:26)
[2020-06-30] MEDS ORDERED: FOSPHENYTOIN 500 MG.PE/10 ML VIAL ONE (21:26)
[2020-06-30] MEDS ORDERED: hydrALAZINE 20 MG/1 ML VIAL IV PRN (22:45)
[2020-06-30] MEDS ORDERED: ALBUTEROL 2.5 MG/3 ML NEB RESP TX PRN (22:45)
[2020-06-30] MEDS ORDERED: ONDANSETRON 4 MG/2 ML VIAL IV PRN (22:45)
[2020-06-30] MEDS ORDERED: LORazepam 2 MG/1 ML VIAL IV PRN (22:45)
[2020-07-01] MEDS ORDERED: ACETAMINOPHEN 325 MG TABLET PO PRN (01:46)
[2020-07-01] MEDS ORDERED: ALBUTEROL 2.5 MG/3 ML NEB RESP TX PRN (01:50)
[2020-07-01] MEDS: LACTATED RINGERS 1,000 ML IV SCH ×2 (02:00→18:06)
[2020-07-01] MEDS ORDERED: PHENYTOIN 100 MG/2 ML VIAL IV SCH (04:00)
[2020-07-01 04:31] LABS: Basophils % 0.4 % (0.0-0.8); Eosinophils % 0.5 % (0.00-10.9); Hematocrit 35.3 VOL% (42.0-52.0); Hemoglobin 11.6 GM/DL (14.0-18.0); Immature Granulocytes % 0.7 %; Immature Granulocytes Absolute 0.06 #; Lymphocytes % 11.9 % (21.2-54.2); Mean Corpuscular HGB Conc 32.9 GM/DL (32-36); Mean Corpuscular Volume 86.1 FL (87-102); Monocytes % 8.2 % (1.7-12.7); Neutrophils % 78.3 % (38.7-73.9); Platelet Count 227 T/CUMM (130-400); Red Cell Distribution Width 14.6 % (9.3-17.3); White Blood Count 8.6 T/CUMM (4-12)
[2020-07-01 04:54] LABS: Calcium 9.4 MG/DL (8.5-10.1); Osmolality,Calculated 274.7 MOS/KG (273-304)
[2020-07-01] MEDS: PHENYTOIN 100 MG/2 ML VIAL IV SCH ×3 (05:10→22:30)
[2020-07-01] MEDS: PANTOPRAZOLE 40 MG VIAL IV SCH (08:50)
[2020-07-02] MEDS: LACTATED RINGERS 1,000 ML IV SCH ×3 (07:11→15:05)
[2020-07-02] MEDS: PANTOPRAZOLE 40 MG VIAL IV SCH (08:31)
[2020-07-02] MEDS: PHENYTOIN 100 MG/2 ML VIAL IV SCH ×2 (08:31→16:30)
[2020-07-02 08:59] LABS: Calcium 9.1 MG/DL (8.5-10.1); Osmolality,Calculated 277.5 MOS/KG (273-304)
[2020-07-02] MEDS ORDERED: ATORVASTATIN 80 MG TABLET PO SCH (11:26)
[2020-07-02] MEDS: ZALEPLON 5 MG CAPSULE PO SCH (21:51)
[2020-07-02] MEDS: ATORVASTATIN 80 MG TABLET PO SCH (21:52)
[2020-07-03] MEDS: PHENYTOIN 100 MG/2 ML VIAL IV SCH ×2 (00:44→08:48)
[2020-07-03] MEDS: LACTATED RINGERS 1,000 ML IV SCH ×5 (00:45→22:02)
[2020-07-03 06:39] LABS: Calcium 9.2 MG/DL (8.5-10.1); Osmolality,Calculated 278.4 MOS/KG (273-304)
[2020-07-03 08:06] LABS: Basophils % 0.6 % (0.0-0.8); Eosinophils % 0.4 % (0.00-10.9); Hematocrit 32.7 VOL% (42.0-52.0); Hemoglobin 10.8 GM/DL (14.0-18.0); Immature Granulocytes % 0.4 %; Immature Granulocytes Absolute 0.02 #; Lymphocytes # 1.2 10*3/uL (1.4-4.0); Lymphocytes % 24.1 % (21.2-54.2); Mean Corpuscular Volume 84.3 FL (87-102); Mean Platelet Volume 9.9 FL (9.6-12.0); Monocytes % 11.9 % (1.7-12.7); Neutrophils % 62.6 % (38.7-73.9); Platelet Count 166 T/CUMM (130-400); Red Blood Count 3.88 MC/CUMM (3.8-5.5); Red Cell Distribution Width 14.2 % (9.3-17.3); White Blood Count 5.1 T/CUMM (4-12)
[2020-07-03] MEDS: PHENYTOIN ER 100 MG CAPSULE PO SCH ×3 (08:53→22:03)
[2020-07-03] MEDS ORDERED: MAGNESIUM SULF RIDER 1 GM in PREMIX 1 EACH IV ONE (11:06)
[2020-07-03] MEDS: levETIRAcetam 250 MG TABLET PO SCH ×2 (12:41→22:03)
[2020-07-03] MEDS: PANTOPRAZOLE 40 MG VIAL IV SCH (12:49)
[2020-07-03] MEDS: ZALEPLON 5 MG CAPSULE PO SCH (22:03)
[2020-07-03] MEDS: ATORVASTATIN 80 MG TABLET PO SCH (22:03)
[2020-07-04] MEDS: LACTATED RINGERS 1,000 ML IV SCH ×2 (02:40→06:15)
[2020-07-04 05:47] LABS: Calcium 8.5 MG/DL (8.5-10.1); Osmolality,Calculated 280.1 MOS/KG (273-304)
[2020-07-04] MEDS ORDERED: POTASSIUM CHLORIDE 20 MEQ TABLET PO ONE (08:17)
[2020-07-04] MEDS: levETIRAcetam 250 MG TABLET PO SCH (08:59)
[2020-07-04] MEDS: PHENYTOIN ER 100 MG CAPSULE PO SCH (09:02)
[2020-07-04] MEDS: PANTOPRAZOLE 40 MG VIAL IV SCH (09:06)
[2020-07-04 12:57] VITALS: BP 135/82
== END 2020-07-04 13:35 | disposition swing bed (61) | DRG 101 ==
LOC: EDUNIT# → N.ED 18:21 → N.EDINP 22:45 → SUATTDRO 22:45 → N.ICU 07-01 11:02 → N.4E 07-02 15:05
PROVIDERS: ADMIT Internal Medicine; ATTEND Internal Medicine